=== PATIENT | male | born 1970 | race Caucasian/White ===

== ENCOUNTER → 2018-10-13 08:37 | Outpatient (CLI) | payer BC, SELFPAY ==
--- NOTE | 2018-10-13 08:45 | US_ITS ---
In length US Arterial Ankle Brachial Ind HISTORY: . Bilateral claudication. Bilateral rest pain. Restless leg on left. Hypertension. Nonsmoker. No diabetes. Weak pulses both legs.. . TECHNIQUE: Segmental pressures obtained of both right and left leg. These are compared to brachial blood pressure to yield index at each level sampled including summary BRANDYN. The data sheets from the procedure are available in PACS FINDINGS Rest study only performed today No prior studies available for comparison. Blood pressures reported are in millimeters mercury. RIGHT LEG BRANDYN = Right BRANDYN = 1.23. Right TBI is 0.89. Brachial BP: 158 Thigh BP: 170 with index 1.08 Calf BP: 194 with index 1.23 Ankle PT: BP 194 with index 1.23 Ankle DP : BP 189 with index 1.2 Digit =BP 140 with index 0.89 LEFT LEG BRANDYN = Left BRANDYN 1.23. Left TBI 0.89. Brachial BPD: 157 Thigh BP: 173 with index 1.09 Calf BP: BP 192 with index 1.22 Ankle PT:BP 195 with index 1.23 Ankle DP: BP 188 with index 1.19 Digit = BP 140 with index 0.89 Pulses and waveforms: Normal bilaterally IMPRESSION: Normal pulses and waveforms bilaterally. No flow-limiting stenosis evident Right BRANDYN = 1.23. Right TBI is 0.89. Left BRANDYN 1.23. Left TBI 0.89.
== END ==
PROVIDERS: PCP Family Medicine; Visit Provider Family Medicine
DX: M79.604 Pain in right leg (principal); M79.605 Pain in left leg
CPT/HCPCS: 93922

== ENCOUNTER → 2018-11-03 09:43 | Outpatient (CLI) | payer BC, SELFPAY ==
--- NOTE | 2018-11-03 09:47 | XR_ITS ---
XR foot wt bearing LT 3V HISTORY: Pain ITS.REASON: pain ORDERING PHYSICIAN: Judit De La O DPM PATIENT AGE: 48 years FINDINGS: There is moderate to severe hallux valgus with first metatarsophalangeal angle of 41 degrees with osteoarthritic change of the first metatarsophalangeal joint and bunion formation with bony hypertrophy of the distal aspect of the first metatarsal. No other significant anomalies. IMPRESSION: Hallux valgus with bunion formation and osteoarthritis of the first MTP joint
--- NOTE | 2018-11-03 09:47 | XR_ITS ---
XR foot wt bearing RT 3V HISTORY: Chronic foot pain with bunion ITS.REASON: pain ORDERING PHYSICIAN: Judit De La O DPM PATIENT AGE: 48 years COMPARISON: None FINDINGS: There is severe hallux valgus with first metatarsophalangeal angle of 43 degrees. Hypertrophic changes present at the distal aspect of the first metatarsal and there are osteoarthritic changes of the first MTP joint. No fracture or dislocation. No lytic or blastic change. IMPRESSION: Hallux valgus with bunion formation and osteoarthritis of the first MTP joint
== END ==
PROVIDERS: PCP Family Medicine; Visit Provider Podiatrist
DX: M20.11 Hallux valgus (acquired), right foot (principal); M20.12 Hallux valgus (acquired), left foot
CPT/HCPCS: 73630; 87102; 87206; 87220

== ENCOUNTER → 2018-11-03 13:24 | Outpatient (CLI) | payer BC, SELFPAY | PROVIDERS: Visit Provider Podiatrist | DX: B35.1 Tinea unguium (principal) | CPT/HCPCS: 87102; 87206; 87220 ==

== ENCOUNTER → 2019-10-29 14:49 | Outpatient (CLI) | payer BC, SELFPAY ==
--- NOTE | 2019-10-29 15:00 | XR_ITS ---
PROCEDURE: XR KNEE RT 3V CLINICAL INDICATION: RT KNEE PAIN,EFFUSION Pain, knee joint effusion, arthritis COMPARISON: No exams were available for comparison FINDINGS: No fracture or dislocation. No lytic or blastic change. There is normal mineralization. There are mild to moderate tricompartmental osteoarthritic changes with osteophytes. There may be a small suprapatellar effusion. 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 Calcification within the soft tissues is also consideration. IMPRESSION: Mild to moderate osteoarthritis with possible small knee joint effusion. 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
== END ==
PROVIDERS: PCP Family Medicine; Visit Provider Family Medicine
DX: M25.561 Pain in right knee (principal); M25.461 Effusion, right knee
CPT/HCPCS: 73562

== ENCOUNTER → 2019-11-19 08:19 | Outpatient (CLI) | payer BC, SELFPAY ==
--- NOTE | 2019-11-19 08:22 | XR_ITS ---
PROCEDURE: XR KNEE RT 4V CLINICAL INDICATION: knee pain Right knee pain and swelling COMPARISON: XR KNEE RT 3V from 10/29/2019 FINDINGS: No fracture or dislocation. No lytic or blastic change. There is normal mineralization. There are [id number]-uqaocnla osteoarthritic changes involving all 3 compartments. No fracture or dislocation is evident. No lytic or blastic change. There is a 14 mm area of popcorn like calcification in the medial popliteal region possibly due to a synovial osteo chondroma within Haynes's cyst Other findings:None. 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
== END ==
PROVIDERS: PCP Family Medicine; Visit Provider Orthopaedic Surgery
DX: M25.561 Pain in right knee (principal)
CPT/HCPCS: 73564

== ENCOUNTER → 2021-10-12 10:47 | Outpatient (CLI) | payer BC, SELFPAY | PROVIDERS: PCP Family Medicine; Visit Provider Nurse Practitioner | DX: Z20.822 Contact with and (suspected) exposure to COVID-19 (principal) | CPT/HCPCS: C9803; U0003; U0005 ==

== ENCOUNTER → 2022-01-09 10:08 | Outpatient (CLI) | payer BC, SELFPAY ==
--- NOTE | 2022-01-09 10:20 | CT_ITS ---
FINAL REPORT TECHNIQUE: Multiple axial CT sections were performed from the foramen magnum to the vertex. Coronal reformatted images were also obtained. Precontrast and postcontrast injection images were obtained. This study was performed with technique to keep radiation doses as low as reasonably achievable, (ALARA). Individualized dose reduction techniques using automated exposure control or adjustment of mA and/or kV according to the patient size were employed. CLINICAL HISTORY: HEADACHE,FACIAL ASYMMETRIES FINDINGS: The ventricles are normal in size. There is no evidence of hemorrhage. No masses are identified. No extra-axial fluid collection is seen. The sinuses are normal. No osseous abnormality is seen on the bone window images. Postcontrast images demonstrate no abnormal enhancement. IMPRESSION: Unremarkable CT of the head with and without contrast. Reviewed, Interpreted and Dictated by Glen Matthew III, MD Transcribed by Milena Breaux Authenticated by Glen Matthew III, MD on 01/09/2022 11:41:45 AM [facility]
== END ==
PROVIDERS: PCP Family Medicine; Visit Provider Nurse Practitioner Family
DX: R51.9 Headache, unspecified (principal)
CPT/HCPCS: 70470; Q9967

== ENCOUNTER → 2023-08-13 12:12 | Outpatient (CLI) | payer BC, SELFPAY ==
--- NOTE | 2023-08-13 12:16 | XR_ITS ---
FINAL REPORT CLINICAL HISTORY: RT SHOULDER PAIN FINDINGS: Right shoulder Three views were obtained. There is no acute fracture or dislocation. There is mild AC joint degenerative change. No soft tissue abnormality is identified. IMPRESSION: No acute process. Reviewed, Interpreted and Dictated by Glen Matthew III, MD Transcribed by Padmaja Denton Authenticated and . [facility]
== END ==
PROVIDERS: PCP Family Medicine; Visit Provider Nurse Practitioner Family
DX: M25.511 Pain in right shoulder (principal)
CPT/HCPCS: 73030

== ENCOUNTER 2023-08-24 15:04 | Emergency (ER) | payer BC, SELFPAY ==
[2023-08-24 15:30] VITALS: BP 154/99; PULSE 96; RESP 18; TEMP 36.9; O2SAT 100; BMI 36.5
--- NOTE | 2023-08-24 16:04 | EXP.UTC ---
Discharge Plan Disposition Patient Disposition: Home, Self-Care Condition: Good Prescriptions Prescriptions: New amoxicillin [amoxicillin] 500 mg tablet 500 mg PO BID 10 Days Qty: 20 0RF No Action valsartan-hydrochlorothiazide 320-25 mg tablet 1 tab PO DAILY Referrals Follow up/Referrals: Tru Gil MD [Primary Care Provider] - See instructions Activity Restrictions/Add. Instructions Additional Instructions/Restrictions: Start antibiotic as soon as possible and be sure to take as ordered for full length of time even though he should start feeling better in 24-48 hours. Tylenol or Motrin as needed for pain or fever Encourage fluids, water, Gatorade, Powerade, Pedialyte if /toddler/child Warm compresses often helps when placed over ear Return immediately for new or worsening symptoms no noticeable improvement in 48-72 hours and in 10-14 days to ensure the ears are return to baseline. Follow-up with primary care Clinical Impressions Clinical Impression: Otitis media Qualifiers: Otitis media type: suppurative Chronicity: acute Laterality: right Recurrence: non-recurrent Spontaneous tympanic membrane rupture: without spontaneous rupture Qualified Code(s): H66.001 - Acute suppurative otitis media without spontaneous rupture of ear drum, right ear Instructions Patient Instructions: Middle Ear Infection Discharge ED Provider: Marlin ([facility])Adelita [facility] General Stated complaint: ear pain Mode of Arrival: Ambulatory Source of Information: Patient Limitations: No Limitations Time Seen by Provider: 08/24/23 16:04 Description of Symptoms (Recalled from Triage Doc. by RN): pain from right ear to right jaw HEENT Symptoms (Recalled from RN notes): Yes Resp Symptoms (Recalled from RN notes): No Skin Symptoms (Recalled from RN notes): No MS Symptoms (Recalled from RN notes): No Functional Status (Recalled from RN notes): n/a History of Present Illness Provider Complaint: 52 yr old male presents for rt ear/jaw pain for 2 days Related Data Home Medications Medication Instructions Recorded Confirmed valsartan 320 1 tab PO DAILY 08/24/23 08/24/23 mg-hydrochlorothiazide 25 mg tablet Previous Rx's Medication Instructions Recorded amoxicillin 500 mg tablet 500 mg PO BID 10 days #20 tabs 08/24/23 Allergies Allergy/AdvReac Type Severity Reaction Status Date / Time No Known Allergies Allergy Verified 08/24/23 16:01 Worker's Comp Is this a Worker's Comp case?: No [facility] Disclaimer: The information contained in this section may have been updated after the patient was seen, as this information can be updated by other users. 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) Smoking Status: Never smoker alcohol intake: current substance use type: denies use current occupational status: employed Travel in the last 8 weeks: None ROS Obtained: Yes All systems reviewed & no additional complaints except as documented Constitutional Constitutional: Reports system reviewed and no additional complaints, except as documented and Reports as per HPI Eyes Eyes: Reports system reviewed and no additional complaints, except as documented ENT Ears, Nose, Mouth, and Throat: Reports system reviewed and no additional complaints, except as documented, Reports as per HPI, Reports otalgia and Reports other (jaw pain) Cardiovascular Cardiovascular: Reports system reviewed and no additional complaints, except as documented Respiratory Respiratory: Reports system reviewed and no additional complaints, except as documented Musculoskeletal Musculoskeletal: Reports system reviewed and no additional complaints, except as documented Integumentary/Breasts Skin/Breast: Reports system reviewed and no additional complaints, except as documented Neurologic Neurologic: Reports system reviewed and no additional complaints, except as documented Endocrine Endocrine: Reports
[2023-08-24 16:20] VITALS: BP 154/99; PULSE 96; RESP 18; TEMP 36.9; O2SAT 100
== END 2023-08-24 16:20 | disposition home or self-care (01) ==
PROVIDERS: Emergency Provider Nurse Practitioner Family; PCP Family Medicine
DX: H66.001 Acute suppurative otitis media without spontaneous rupture of ear drum, right ear (principal); R68.84 Jaw pain
CPT/HCPCS: 99204; 99212; G0463

== ENCOUNTER 2024-06-04 08:57 | Outpatient (CLI) | payer BC, SELFPAY ==
--- NOTE | 2024-06-04 09:04 | XR_ITS ---
FINAL REPORT CLINICAL HISTORY: Right Shoulder Pain COMPARISON: None FINDINGS: RIGHT SHOULDER Two views demonstrate no acute fracture or dislocation. Mild acromioclavicular degenerative changes present. There is spurring present on the undersurface of the acromion process. Mild glenohumeral degenerative changes are seen. The visualized bony structures are well aligned. No soft tissue abnormality is seen. IMPRESSION: Mild acromioclavicular and glenohumeral degenerative change as described. Reviewed, Interpreted and Dictated by Glen Matthew III, MD Transcribed by Lisa Mckeon Authenticated and [facility]
== END 2024-06-04 23:59 | disposition home or self-care (01) ==
LOC: RAD 08:58
PROVIDERS: PCP Family Medicine; Visit Provider Orthopaedic Surgery
DX: M25.511 Pain in right shoulder (principal)
CPT/HCPCS: 73030